=== PATIENT | female | born 1960 | race Caucasian/White ===

== ENCOUNTER 2016-09-10 08:19 | Day surgery (SDC) | payer BC ==
[2016-09-09 18:21] LABS: HEMATOCRIT 40.3 % (36.0-48.0); HEMOGLOBIN 13.3 g/dL (12.0-16.0)
[2016-09-09 18:25] LABS: BUN (BLOOD UREA NITROGEN) 10 MG/DL (6-23); CALCIUM, SERUM 7.1 MG/DL (8.5-10.4); CHLORIDE, SERUM 101 MMOL/L (96-112); CO2 (CARBON DIOXIDE) 28 MMOL/L (24-34); CREATININE 1.01 MG/DL (0.55-1.02); GFR AFRICAN AMERICAN 73 ML/MIN (>=60); GFR NON AFRICAN AMERICAN 63 ML/MIN (>=60); POTASSIUM, SERUM 4.2 MMOL/L (3.5-5.3); SODIUM, SERUM 140 MMOL/L (135-148)
[2016-09-09 18:29] LABS: GLUCOSE, SERUM 104 MG/DL (60-99)
--- NOTE | ~2016-09-10 | OP ---
Record Of Operation [facility] [address] [place]. [address] NAME: DARLENE WALKER : 60 STATUS : REG [facility]#: [id number] AGE: 55 ADM/REG DATE : 09/10/16 MR#: [id number] REPORT SERV DATE: 09/10/16 DICTATED BY: JAYCE SERRA III DATE: 09/10/16 REPORT STATUS : Draft TRANSCRIBED BY: MODL DATE: 09/10/16 DATE OF PROCEDURE: 09/10/2016 PREOPERATIVE DIAGNOSIS: Urinary retention. POSTOPERATIVE DIAGNOSIS: Vaginal prolapse. PROCEDURE: Cystoscopy and urethral dilation. SURGEON: Jayce Serra M.D. ANESTHESIA: General. SPECIMENS: None. DRAINS: None. ESTIMATED BLOOD LOSS: None. INDICATION: Ms. Walker is a 55-year-old white female, who presents complaining of urinary incontinence as well as difficulty emptying her bladder. Postvoid residual was greater than 300 mL. Consent is obtained for cystoscopy and urethral dilation. She does have a history of a urethral sling being placed. DESCRIPTION OF PROCEDURE: After consent was obtained, the patient was identified. She was taken to the OR and put to sleep. She was positioned in low lithotomy position and prepped and draped in usual fashion. On inspection, the patient was noted to have a rectocele, enterocele, as well as the cystocele. Cystoscopy was performed. The urothelium appeared normal. There was some debris in the fore consistent with poor emptying. With the bladder left full, the female sounds were used to dilate up to 32-[place] without undue force. The bladder was then drained. The scope was removed. The patient was awakened and taken to recovery in stable condition. PH/MODL Jayce Serra III, M.D. / [id number] CC: Trisha Esteves III, M.D.
[~2016-09-10 08:19] MED LIST: 8 HOUR650 MG PO; ACCO20 PO; ACCUNEB INH; ALBUTEROL SULFATE INH; ALBUTEROL0.083 % INH; ALEVE220 MG PO; ALLEGRA180 PO; ALVESCO INH; AMB10 PO; ASAB PO; ASPERCREME; ASPERCREME T; ASPERCREME102 EX; ASTELIN NAS; B12100T PO; BL CHROMIUM200 MCG PO; CALCITRIOL PO; CALCIUM/VITAMIN D PO; CALTRA600D PO; CALTRAT600 PO; CAT1 PO; CYMBALTA60 PO; Caltrate; DEPO-ESTRADIO1 MG/ML IM; EEMT HS PO; ENDOCET1 TAB PO; ESTRATEST PO; ETODOLAC ER600 MG OR; ETODOLAC ER600 MG PO; FISH OIL1200 MG PO; FISH-EPA1000 MG PO; FLEX PO; FLONASE NAS; GLUCCHONDR PO; HCTZ25B PO; HYDROCHLOROT25 MG PO; KLOR-CON M2020 MEQ PO; L20 PO; LIDODERM T; LIOR10 PO; MAXAIR AUTOHALE1 INH INH; MAXAIR AUTOHALER INH; MORPHINE 15 MG; MSCONT15 PO; MSM1000 M1 PO; MULTIPLE VIT PO; MULTIVITAMI1 PO; NEOPORACIN EX; NEUR300 PO; NORV10 PO; OMNARIS; OSTEO BI-FLEX1 EACH PO; OXYCOD PO; PREV30 PO; PRILO PO; PRILOSEC40 MG PO; PRIN10 PO; PROZAC PO; ROCALTROL 0.0.25 MCG OR; ROCALTROL 0.0.25 MCG PO; SPIRO25 PO; SUCR PO; SYN88 PO; SYNTHROID175 MCG PO; TYLENOL ARTH650 MG PO; VICODINTAB PO; VITAMIN C100 MG PO; VITAMIN D2000 UNIT PO; VITAMIN D31000 UNIT PO; VITC500 PO; VITE1000 PO; VOLTAREN1 % TOP; Vitamin B; X5 PO; XANAX2 MG PO; XOPENEX HFA INH; [UNRECOGNIZED DRUG - OTHER]; [UNRECOGNIZED DRUG - OTHER] INH; [UNRECOGNIZED DRUG - OTHER] PO/LIQ
== END 2016-09-10 13:42 | disposition home or self-care (01) ==
LOC: SDC 08:19
PROVIDERS: Urology
PROC: 0T7D8ZZ Dilation of Urethra, Via Natural or Artificial Opening Endoscopic (ICD-10-PCS; principal; 2016-09-10 09:45)
DX: N81.10 Cystocele, unspecified (principal); I10 Essential (primary) hypertension; E89.0 Postprocedural hypothyroidism; I25.10 Atherosclerotic heart disease of native coronary artery without angina pectoris; M79.7 Fibromyalgia; F41.9 Anxiety disorder, unspecified; E03.9 Hypothyroidism, unspecified; K44.9 Diaphragmatic hernia without obstruction or gangrene; K21.9 Gastro-esophageal reflux disease without esophagitis; M81.0 Age-related osteoporosis without current pathological fracture; M19.90 Unspecified osteoarthritis, unspecified site; E78.00 Pure hypercholesterolemia, unspecified; J45.909 Unspecified asthma, uncomplicated; J30.2 Other seasonal allergic rhinitis; G62.9 Polyneuropathy, unspecified; I11.0 Hypertensive heart disease with heart failure; I50.9 Heart failure, unspecified; F32.9 Major depressive disorder, single episode, unspecified; Z90.49 Acquired absence of other specified parts of digestive tract; Z98.890 Other specified postprocedural states; Z90.710 Acquired absence of both cervix and uterus; Z88.8 Allergy status to other drugs, medicaments and biological substances; Z79.899 Other long term (current) drug therapy; Z79.891 Long term (current) use of opiate analgesic
CPT/HCPCS: 36415; 80048; 85014; 85018; 93005; J2250; J2405